=== PATIENT | female | born 1980 | race Two or more races ===

== ENCOUNTER 2023-08-16 00:41 | Emergency (ER) | payer OTHER, MEDICAID ==
[~2023-08-16] VITALS: Ht 170.2 cm; Wt 136.0 kg
[2023-08-16 00:49] VITALS: BP 148/89; PULSE 83; RESP 16; TEMP 99
[2023-08-16 04:21] VITALS: O2SAT 96
[2023-08-16] MEDS: HYDROcodone-ACET 5/325MG TAB PO ONE (04:25)
[2023-08-16] MEDS ORDERED: HYDR-4902 PO (04:30)
== END 2023-08-16 04:49 | disposition home or self-care (01) ==
LOC: ER 00:41
DX: M25.571 Pain in right ankle and joints of right foot (principal); Z88.8 Allergy status to other drugs, medicaments and biological substances
CPT/HCPCS: 29515; 73610

== ENCOUNTER 2024-05-03 06:01 | Emergency (ER) | payer MEDICAID, OTHER ==
[~2024-05-03] VITALS: Ht 170.2 cm; Wt 131.2 kg
[~2024-05-03 06:01] MED LIST: AUG875T PO; HYDR-4902 PO; IBUP-1455 PO; MECL1TAB42 PO; ZOFR4T PO
--- NOTE | 2024-05-03 07:05 | ED.PDOC ---
History of Present Illness HPI Comments This is 44-year-old female who comes into the ED with chief complain of generalized tingling and dizziness. She has a past medical history relevant for type 2 diabetes , hypertension and brain aneurysm, vertigo. Patient stated that since yesterday she started having generalized tingling sensation, numbness and tightness sensation on her right upper arm, a mild headache, intermittent palpitations, and intermittent dizziness worse on change of position. She stated that she took her BP at home and it was 178/108. She mentioned that on med February she got a new prescription for amlodipine 5 mg p.o. q.d. and losartan 25 mg p.o. q.d.. Patient denies any shortness of breath, chest pain, lightheadedness, abdominal pain, nausea, vomiting, gait disturbance, significant weakness. Chief Complaint: Dizziness Time Seen by MD: 06:35 Primary Care Provider: ? Reviewed Notes: Nurses Notes Allergies: Coded Allergies: Codeine (Verified Allergy, Unknown, 08/16/23) Uncoded Allergies: IV CONTRAST (Allergy, Unknown, 08/16/23) Home Meds Active Scripts Ibuprofen Micronized (Ibuprofen) 800 Mg Tab, 800 MG PO Q8HP PRN, #15 TAB Prov:STACY BRAND PAC 03/18/24 Ondansetron Odt 4MG Tab (ZOFRAN PO) 4 Mg Tb, 4 MG PO Q6HP PRN, #15 TAB ODT TAB-DISSOLVE IN MOUTH, THEN SWALLOW Prov:STACY BRAND PAC 03/18/24 Meclizine HCl (Meclizine 25) 25 Mg Tab, 25 MG PO Q8HP PRN, #15 TAB Prov:STACY BRAND PAC 03/18/24 Amoxicillin & Pot Clavulanate (AUGMENTIN TABLET) 875 Mg Tb, 875 MG PO BID for 10 Days, #20 TAB Prov:STACY BRAND PAC 03/18/24 Hydrocodone-Acetaminophen (Hydrocodone Bitartrate/AC 5-325 mg) 1 Tab Tab, 1 TAB PO Q6HPRN PRN, #10 TAB as needed for pain Prov:PRAMOD LU AUTOMATION CONTROLS ENGINEER 08/16/23 Information Source: Patient Mode of Arrival: Ambulatory Timing: Hours Duration: Since onset Past Medical History PAST MEDICAL HISTORY: DM, HTN Surgical History: Denies all surgeries BROTHEL KEEPER History: No Pertinent BROTHEL KEEPER History Family History Family History: Reviewed,noncontributory to illness, No family hx of Cancer, No family hx of DM, No family hx of Heart kavya, No family hx of HTN, No family hx ofKidney kavya, No family hx of Liver kavya, No family hx of Lung kavya, No family hx of Stroke Social History Smoker: Non-Smoker Alcohol: Denies ETOH Use Drugs: Denies Drug Use Lives In: Home Constitutional: denies: chills, diaphoresis, fatigue, fever, malaise, sweats, weakness, others EENTM: denies: blurred vision, double vision, ear bleeding, ear discharge, ear drainage, ear pain, ear ringing, eye pain, eye redness, hearing loss, mouth pain, mouth swelling, nasal discharge, nose bleeding, nose congestion, nose pain, photophobia, tearing, throat pain, throat swelling, voice changes, others Respiratory: denies: cough, hemoptysis, orthopnea, SOB at rest, shortness of breath, SOB with excertion, stridor, wheezing, others Cardiovascular: denies: chest pain, dizzy spells, diaphoresis, Dyspnea on exertion, edema, irregular heart beat, left arm pain, lightheadedness, palpitations, PND, syncope, others Gastrointestinal: denies: abdomen distended, abdominal pain, blood streaked bowels, constipated, diarrhea, dysphagia, difficulty swallowing, hematemesis, melena, nausea, poor appetite, poor fluid intake, rectal bleeding, rectal pain, vomiting, others Genitourinary: denies: abnormal vagina bleeding, burning, dyspareunia, dysuria, flank pain, frequency, hematuria, incontinence, pain, , vagina discharge, urgency, others Neurological: reports: dizziness, headache, numbness, paresthesia, tingling; denies: fainting, left sided numbness, left sided weakness, pre-existing deficit, right sided numbness, right sided weakness, seizure, speech problems, tremors, weakness, others Musculoskeletal: denies: back pain, gout, joint pain, joint swelling, muscle pain, muscle stiffness, neck pain, others Integumetry: denies: bruises, change in color, change in hair/nails, dryness, laceration, lesions, lumps, rash, wounds, others Allergic/Immunocompromised: denies: Difficulty Healing, Frequent Infections, Hives, Itching, others Hematologic/Lymphatic: denies: anemia, blood clots, easy bleeding, easy bruising, swollen glands, others Endocrine: denies: excessive hunger, excessive sweating, excessive thirst, excessive urination, flushing, intolerance to cold, intolerance to heat, unexplained weight gain, unexplained weight loss, others Psychiatric: denies: anxiety, bipolar disorder, depression, hopeless, panic disorder, schizophrenia, sleepless, suicidal, others Physical Exam General Appearance: No Apparent Distress, Normal HEENT: Normal ENT Inspection, Pharynx Normal, TMs Normal Neck: Full Range of Motion, Non-Tender, Normal, Normal Inspection Respiratory: Chest Non-Tender, Lungs Clear, No Accessory Muscle Use, No Respiratory Distress, Normal Breath Sounds Cardiovascular: No Edema, No JVD, No Murmur, No Gallop, Normal Peripheral Pulses, Regular Rate/Rhythm Breast Exam: Deferred Gastrointestinal: No Organomegaly, Non Tender, No Pulsatile Mass, Normal Bowel Sounds, Soft Genitalia: Deferred Pelvic: Deferred Rectal: Deferred Extremities: No calf tenderness, Normal capillary refill, Normal inspection, Normal range of motion, Non-tender, No pedal edema Neurologic: Alert, 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 Was a procedure done?: No Differential Dx Considerations may include: Hypertensive urgency, anxiety disorder, vertigo, hyperglycemia, X-Ray, Labs, Meds, VS Vital Signs Date Time Temp Pulse Resp B/P (MAP) Pulse Ox O2 Delivery O2 Flow Rate FiO2 05/03/24 07:40 80 20 138/92 (107) 98 05/03/24 07:40 80 20 98 Room Air* 0 21 05/03/24 06:38 80 05/03/24 06:05 97.9 78 16 160/97 (118) 99 Lab Test 05/03/24 06:40 05/03/24 06:20 05/03/24 06:19 Range/Units White Blood Count 8.0 4.4-10.8 10^3/uL Red Blood Count 5.30 H 4.0-5.20 10^6/uL Hemoglobin 14.3 12.2-16.2 g/dL Hematocrit 42.8 36.0-46.0 % Mean Corpuscular Volume 80.7 80.0-100.0 fL Mean Corpuscular Hemoglobin 26.9 L 28.0-32.0 pg Mean Corpuscular Hemoglobin Concent 33.3 32.0-36.0 g/dL Red Cell Distribution Width 13.8 11.8-14.3 % Platelet Count 296 140-450 10^3/uL Mean Platelet Volume 8.1 6.9-10.8 fL Neutrophils (%) (Auto) 57.0 37.0-80.0 % Lymphocytes (%) (Auto) 34.8 10.0-50.0 % Monocytes (%) (Auto) 5.3 0.0-12.0 % Eosinophils (%) (Auto) 2.5 0.0-7.0 % Basophils (%) (Auto) 0.4 0.0-2.0 % Neutrophils # (Auto) 4.6 1.6-8.6 10 ^3/uL Lymphocytes # (Auto) 2.8 0.4-5.4 10 ^3/uL Monocytes # (Auto) 0.4 0-1.3 10 ^3/uL Eosinophils # (Auto) 0.2 0-0.8 10 ^3/uL Basophils # (Auto) 0 0-0.2 10 ^3/uL Nucleated Red Blood Cells 0.1 % Sodium Level 137 136-145 mmol/L Potassium Level 4.0 3.5-5.1 mmol/L Chloride Level 103 98-107 mmol/L Carbon Dioxide Level 28 20-31 mmol/L Anion Gap 6 5-15 Blood Urea Nitrogen 10 9-23 mg/dL Creatinine 0.61 0.550-1.02 mg/dL Glomerular Filtration Rate Calc 112 >90 mL/min BUN/Creatinine Ratio 16.4 10.0-20.0 Serum Glucose 162 H 74-106 mg/dL Calcium Level 9.4 8.7-10.4 mg/dL Troponin I High Sensitivity < 3 L </=34 ng/L Urine Color Colorless Yellow Urine Clarity Clear Clear Urine pH 5.5 5.0-9.0 Urine Specific Tower 1.013 1.001-1.035 Urine Protein Negative Negative Urine Ketones Negative Negative Urine Blood Negative Negative /uL Urine Nitrite Negative Negative Urine Bilirubin Negative Negative Urine Urobilinogen Normal Negative mg/dL Urine Leukocyte Esterase Negative Negative /uL Urine RBC 2 0 - 4 /hpf Urine WBC <1 0 - 5 /hpf Urine Squamous Epithelial Cells Few <5 /hpf Urine Bacteria None seen None Seen /hpf Urine Glucose Normal Normal mg/dL POC Glucose 156 H 70-106 mg/dl On my initial examination, patient is in no apparent distress, states feeling the numbness and tingling sensation mostly on her right arm. We will order CBC, BMP, UA, EKG, troponins we will continue to reassess. Blood work was unremarkable, EKG was unremarkable, patient has had significant clinical improvement , blood pressure came down to normal levels. We will discharge patient home on continue home medications prescribed, we will recommended to follow with PCP within one week, counseled her on low-salt diet, stress relieving activities, exercise. We will increase the dose of losartan to 50 mg p.o. q.d. and we will also prescribe her Zoloft 25 mg p.o. q.d., comprehensively counseled about benefits and possible side effects of these medications. Images Reviewed?: Images reviewed and evaluated by me Time of 1ST Reevaluation: 06:57 Reevaluation 1ST: Unchanged Time of 2ND Reevaluation: 08:00 Reevaluation 2ND: Improved Patient Education/Counseling: Diagnosis, Treatment Family Education/Counseling: No Family Present Departure 1 Departure Time of Disposition: 08:35 Impression: Primary Impression: Hypertensive urgency Additional Impressions: Anxiety disorder Type 2 diabetes mellitus Disposition: 01 HOME / SELF CARE / HOMELESS Condition: Stable e-Prescriptions Sertraline Hcl (Sertraline Hcl) 25 Mg Tab 1 TAB PO DAILY, #30 TAB 1 Refill Prov: SABA MORALES RESIDENT 05/03/24 Losartan Potassium (Losartan Potassium) 50 Mg Tab 1 TAB PO DAILY, #90 TAB 1 Refill Prov: SABA MORALES RESIDENT 05/03/24 Critical Care Note Critical Care Time?: No Stability Stability form required: No Heart Score Heart Score: Heart Score Response (Comments) Value History Slightly Suspicious 0 EKG Normal 0 Age 45-64 1 Risk Factors 1 or 2 risk factors 1 Troponin N/A 0 Total 2 SABA MORALES RESIDENT May 03, 2024 07:04
[2024-05-03 07:13] LABS: Urine Bacteria None Seen /hpf (None Seen)
[2024-05-03 07:14] LABS: Basophils # (auto) 0 10 ^3/uL (0-0.2); Basophils % (auto) 0.4 % (0.0-2.0); Eosinophils # (auto) 0.2 10 ^3/uL (0-0.8); Hemoglobin 14.3 g/dL (12.2-16.2); Lymphocytes # (auto) 2.8 10 ^3/uL (0.4-5.4); Mean Corpuscular Hemoglobin 26.9 pg (28.0-32.0); Monocytes # (auto) 0.4 10 ^3/uL (0-1.3); Neutrophils # (auto) 4.6 10 ^3/uL (1.6-8.6); Nucleated Red Blood Cells % 0.1 %
[2024-05-03 07:17] LABS: Eosinophils % (auto) 2.5 % (0.0-7.0); Hematocrit 42.8 % (36.0-46.0); Lymphocytes % (auto) 34.8 % (10.0-50.0); Mean Corpuscular Hgb Conc. 33.3 g/dL (32.0-36.0); Mean Corpuscular Volume 80.7 fL (80.0-100.0); Monocytes % (auto) 5.3 % (0.0-12.0); Platelet Count (auto) 296 10^3/uL (140-450); Red Cell Distribution Width 13.8 % (11.8-14.3)
[2024-05-03 07:18] LABS: Chloride 103 mmol/L (98-107); Sodium 137 mmol/L (136-145)
[2024-05-03 07:19] LABS: Anion Gap 6 (5-15); Calcium 9.4 mg/dL (8.7-10.4); Carbon Dioxide 28 mmol/L (20-31)
[2024-05-03 07:24] LABS: BUN/Creatinine Ratio 16.4 (10.0-20.0); Blood Urea Nitrogen 10 mg/dL (9-23); Glucose 162 mg/dL (74-106)
[2024-05-03 07:30] LABS: Urine Blood Negative /uL (Negative); Urine Clarity Clear (Clear); Urine Color Colorless (Yellow); Urine Protein, UAD Negative (Negative); Urine Specific Gravity 1.013 (1.001-1.035); Urine Urobilinogen Normal (Negative); Urine WBC <1 /hpf (0 - 5); Urine pH 5.5 (5.0-9.0)
[2024-05-03 07:40] VITALS: PULSE 80; RESP 20; O2SAT 98
[2024-05-03] MEDS ORDERED: LOSA-534 PO (08:37)
[2024-05-03] MEDS ORDERED: SERT25TA28 PO (08:37)
[2024-05-03 08:59] VITALS: BP 128/66; PULSE 88; RESP 20; O2SAT 97
--- NOTE | 2024-05-04 07:19 | ECG ---
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
== END 2024-05-03 09:01 | disposition home or self-care (01) ==
LOC: ER 06:01
DX: I16.0 Hypertensive urgency (principal); I10 Essential (primary) hypertension; F41.9 Anxiety disorder, unspecified; E11.9 Type 2 diabetes mellitus without complications; R00.2 Palpitations; Z79.899 Other long term (current) drug therapy; Z88.5 Allergy status to narcotic agent
CPT/HCPCS: 36415; 80048; 81001; 82962; 84484; 85025; 93005

== ENCOUNTER 2025-03-11 21:46 | Emergency (ER) | payer MEDICAID ==
[~2025-03-11] VITALS: Ht 167.6 cm; Wt 131.2 kg
[2025-03-11] MEDS: cefTRIAXone SOD 1,000 MG VL IM ONE (03:40)
[~2025-03-11 21:46] MED LIST changes: +LOSA-534 PO; +SERT25TA28 PO
[2025-03-11] MEDS: LACTATED RINGER'S 1,800 ML IV ONE (22:17)
--- NOTE | 2025-03-11 22:38 | ED.PDOC ---
History of Present Illness HPI Comments 44 y/o F, with a history of brain aneurysm, DM II, and HTN, presents with c/c headache. Patient endorses on sudden, unprovoked, and atraumatic onset of pain, this evening, after having bodyaches, congestion, and throat itchiness all day since this morning. Denies any further associated symptoms. Headache is not stated to not be the worse she has had but it states on it being generalized throughout her head. Chief Complaint: Body Pain Time Seen by MD: 22:10 Primary Care Provider: ? Reviewed Notes: Nurses Notes, Medications, Allergies Allergies: Coded Allergies: Codeine (Verified Allergy, Unknown, 08/16/23) Uncoded Allergies: IV CONTRAST (Allergy, Unknown, 08/16/23) Home Meds Active Scripts Sertraline Hcl (Sertraline Hcl) 25 Mg Tab, 1 TAB PO DAILY, #30 TAB 1 Refill Prov:SABA MORALES RESIDENT 05/03/24 Losartan Potassium (Losartan Potassium) 50 Mg Tab, 1 TAB PO DAILY, #90 TAB 1 Refill Prov:SABA MORALES RESIDENT 05/03/24 Ibuprofen Micronized (Ibuprofen) 800 Mg Tab, 800 MG PO Q8HP PRN, #15 TAB Prov:STACY BRAND PAC 03/18/24 Ondansetron Odt 4MG Tab (ZOFRAN PO) 4 Mg Tb, 4 MG PO Q6HP PRN, #15 TAB ODT TAB-DISSOLVE IN MOUTH, THEN SWALLOW Prov:STACY BRAND PAC 03/18/24 Meclizine HCl (Meclizine 25) 25 Mg Tab, 25 MG PO Q8HP PRN, #15 TAB Prov:STACY BRAND PAC 03/18/24 Amoxicillin & Pot Clavulanate (AUGMENTIN TABLET) 875 Mg Tb, 875 MG PO BID for 10 Days, #20 TAB Prov:STACY BRAND PAC 03/18/24 Hydrocodone-Acetaminophen (Hydrocodone Bitartrate/AC 5-325 mg) 1 Tab Tab, 1 TAB PO Q6HPRN PRN, #10 TAB as needed for pain Prov:PRAMOD LU TREASURER [employer] 08/16/23 Information Source: Patient Mode of Arrival: Ambulatory Past Medical History PAST MEDICAL HISTORY: DM, HTN Surgical History: Denies all surgeries NET MANAGER History: No Pertinent NET MANAGER History Family History Family History: Reviewed,noncontributory to illness, No family hx of Cancer, No family hx of DM, No family hx of Heart kavya, No family hx of HTN, No family hx ofKidney kavya, No family hx of Liver kavya, No family hx of Lung kavya, No family hx of Stroke Social History Smoker: Non-Smoker Alcohol: Denies ETOH Use Drugs: Denies Drug Use Lives In: Home All Other Systems: Reviewed and Negative (as per HPI) Physical Exam General Appearance: No Apparent Distress, Obese HEENT: Normal ENT Inspection, Pharynx Normal, TMs Normal Neck: Full Range of Motion, Non-Tender, Normal, Normal Inspection Respiratory: Chest Non-Tender, Lungs Clear, No Accessory Muscle Use, No Respiratory Distress, Normal Breath Sounds Cardiovascular: No Edema, No JVD, No Murmur, No Gallop, Normal Peripheral Pulses, Regular Rate/Rhythm Breast Exam: Deferred Gastrointestinal: No Organomegaly, Non Tender, No Pulsatile Mass, Normal Bowel Sounds, Soft Genitalia: Deferred Pelvic: Deferred Rectal: Deferred Extremities: No calf tenderness, Normal capillary refill, Normal inspection, Normal range of motion, Non-tender, No pedal edema Musculoskeletal : Apperance: Normal Neurologic: Alert, 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 Was a procedure done?: No Differential Dx Considerations may include: brain aneurysm, migraines, tension headache, viral syndrome, meningitis, intracranial bleed among others X-Ray, Labs, Meds, VS Vital Signs Date Time Temp Pulse Resp B/P (MAP) Pulse Ox O2 Delivery O2 Flow Rate FiO2 03/11/25 21:47 100.1 119 19 149/85 96 100.1 Lab Test 03/11/25 22:40 Range/Units White Blood Count 5.5 4.4-10.8 10^3/uL Red Blood Count 5.46 H 4.0-5.20 10^6/uL Hemoglobin 14.6 12.2-16.2 g/dL Hematocrit 43.1 36.0-46.0 % Mean Corpuscular Volume 79.0 L 80.0-100.0 fL Mean Corpuscular Hemoglobin 26.8 L 28.0-32.0 pg Mean Corpuscular Hemoglobin Concent 34.0 32.0-36.0 g/dL Red Cell Distribution Width 14.0 11.8-14.3 % Platelet Count 192 140-450 10^3/uL Mean Platelet Volume 8.6 6.9-10.8 fL Neutrophils (%) (Auto) 68.6 37.0-80.0 % Lymphocytes (%) (Auto) 16.5 10.0-50.0 % Monocytes (%) (Auto) 12.6 H 0.0-12.0 % Eosinophils (%) (Auto) 1.9 0.0-7.0 % Basophils (%) (Auto) 0.4 0.0-2.0 % Neutrophils # (Auto) 3.8 1.6-8.6 10 ^3/uL Lymphocytes # (Auto) 0.9 0.4-5.4 10 ^3/uL Monocytes # (Auto) 0.7 0-1.3 10 ^3/uL Eosinophils # (Auto) 0.1 0-0.8 10 ^3/uL Basophils # (Auto) 0 0-0.2 10 ^3/uL Nucleated Red Blood Cells 0.1 % Prothrombin Time 10.6 9.3-11.8 sec Prothrombin Time INR 1.00 0.9-1.15 Activated Partial Thromboplast Time 28.7 24.5-34.5 SEC Sodium Level 132 L 136-145 mmol/L Potassium Level 4.0 3.5-5.1 mmol/L Chloride Level 97 L 98-107 mmol/L Carbon Dioxide Level 24 20-31 mmol/L Anion Gap 11 5-15 Blood Urea Nitrogen 11 9-23 mg/dL Creatinine 0.74 0.550-1.02 mg/dL Glomerular Filtration Rate Calc 101 >90 mL/min BUN/Creatinine Ratio 14.9 10.0-20.0 Serum Glucose 325 H 74-106 mg/dL Lactic Acid Level 1.5 0.4-2.0 mmol/L Calcium Level 8.9 8.7-10.4 mg/dL Total Bilirubin 0.3 0.2-1.0 mg/dL Aspartate Amino Transferase (AST) 30 13-40 U/L Alanine Aminotransferase (ALT) 37 7-40 U/L Alkaline Phosphatase 149 H 46-116 U/L Total Protein 7.5 5.7-8.2 g/dL Albumin 4.1 3.2-4.8 g/dL [address] [address] Ph: [phone] DIAGNOSTIC IMAGING Diagnostic Imaging Report : [id number] Signed PATIENT: TEN LOCKWOOD ACCT: [id number] UNIT: [id number] : 1980 LOC: ER ROOM / BED: / AGE / SEX: 44 / F ADM STATUS: REG ER SERVICE 13 ORDERING PHYSICIAN: EMMA CID MD PROCEDURE(s): CXRP - CHEST PORTABLE REASON: sepsis ORDER NUMBER(s): [id number], ACCESSION NUMBER(s): [id number] INDICATION: sepsis TECHNIQUE: Frontal view of the chest. COMPARISON: None FINDINGS/IMPRESSION: The lungs are clear. The cardiomediastinal silhouette is unremarkable. No pleural effusion or pneumothorax. No acute osseous abnormality. ATED BY: MIKE KEARNEY MD DICTATED DATE/TIME: 03/11/252334 SIGNED BY: MIKE KEARNEY MD SIGNED DATE/TIME: 03/11/252334 CC: [address] [address] Ph: [phone] DIAGNOSTIC IMAGING Diagnostic Imaging Report : [id number] Signed PATIENT: TEN LOCKWOOD ACCT: [id number] UNIT: [id number] : 1980 LOC: ER ROOM / BED: / AGE / SEX: 44 / F ADM STATUS: REG ER SERVICE 11 ORDERING PHYSICIAN: EMMA CID MD PROCEDURE(s): HWOCT - HEAD WITHOUT CONTRAST REASON: headache, history of aneurism ORDER NUMBER(s): [id number], ACCESSION NUMBER(s): [id number] EXAM: CT HEAD WITHOUT CONTRAST INDICATION: headache, history of aneurism TECHNIQUE: CT of the head without intravenous contrast. Radiation Dose : 1. Head: CT Dose: CTDI volume is 66.16 mGy. Dose-length product is 1303.58 mGy*cm The dose indicators for CT are the volume Computed Tomography (CT) Dose Index (CTDIvol) and the Dose Length Product (DLP), and are measured in units of mGy and mGy-cm, respectively. These indicators are not patient dose, but values generated from the CT scanner acquisition factors. The report includes radiation exposure data for exposures received during this examination. COMPARISON: CT HEAD WITHOUT CONTRAST on DOS: 03/18/24 FINDINGS: Brain: No acute hemorrhage, mass effect, or cerebral edema. Small focus of encephalomalacia within the left inferior frontal gyrus. Aneurysm clip of the left MCA. CSF Spaces: Size and morphology within normal limits. Bones/Soft Tissues: No acute findings. Orbits/Sinuses/Mastoids: Mild paranasal sinus disease. Otherwise unremarkable. IMPRESSION: 1. No acute intracranial abnormality. 2. 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 Radiation optimization: All CT scans at this facility use at least one of these dose optimization techniques: automated exposure control mA and/or kV adjustment per patient size (includes targeted exams where dose is matched to clinical indication) or iterative reconstruction. ATED BY: ANTHONY CARRERA MD DICTATED DATE/TIME: 03/11/252328 SIGNED BY: ANTHONY CARRERA MD SIGNED DATE/TIME: 03/11/252328 CC: Time of 1ST Reevaluation: 22:40 Reevaluation 1ST: Unchanged Reevaluation 2ND: Patient eloped Patient Education/Counseling: Diagnosis, Treatment, Need For Follow Up Family Education/Counseling: No Family Present Comments Because the patient has history of brain aneurysm the concern was intracranial bleed CVA. Also patient has a low-grade temperature meningitis is a concern although she does not present with nuchal rigidity any rashes or photophobia. Viral headache and viral syndrome can also produce the same presentation. Her CT was unremarkable however on re-evaluation the patient had eloped Additional Information Previous visits: May 03, 2024 encounter for hypertensive urgency The following tests were ordered, and results were reviewed by me: Accucheck, head CT w/o contrast, Covid19/influenza antigen, urine test, lactic acid, UA, PTPTT, CMP, CBC, blood culture, CXR Additional Information was gathered from interviewing the following independent historians: N/A I reviewed and agreed with the following test results read by other providers: head CT w/o contrast, CXR I discussed treatment and results with medical personnel and: patient SEPSIS Sepsis Screen Date sepsis recognized/suspect: Mar 11, 2025 Time Sepsis recognized/suspect: 2152 Recent Procedure: No On Antibiotic Therapy: No Respiratory Rate >20: No Heart Rate >90: Yes Temp<36 C (96.8 F) or >38.3 C: No SBP <90 or MAP <65 mmHG: No New Acute Mental Status Change: No Is the patient on CPAP, BIPAP,: No Physician Orders Head Without Contrast (03/11/25 22:12) Urinalysis (03/11/25 22:14) Chest Portable (03/11/25 22:14) Accucheck (03/11/25 22:14) Blood Culture (03/11/25 22:14) Notify Md If Map <65 Or Bp<90 (03/11/25 22:14) If Map<65 Start Vasopressor (03/11/25 22:14) Sepsis Reassesment After Fluid (03/11/25 23:14) Test, Urine (03/11/25 22:14) Covid19 Antigen Liss (03/11/25 ) Vital Signs Date Time Temp Pulse Resp B/P (MAP) Pulse Ox O2 Delivery O2 Flow Rate FiO2 03/11/25 21:47 100.1 119 19 149/85 96 100.1 Laboratory Tests Test 03/11/25 22:40 Lactic Acid Level 1.5 mmol/L (0.4-2.0) White Blood Count 5.5 10^3/uL (4.4-10.8) Departure 1 Departure Time of Disposition: 02:02 Impression: Primary Impression: Headache Disposition: 07 LEFT AWOL/ELOPED Condition: Other (Unknown) Critical Care Note Critical Care Time?: No Stability Stability form required: No Heart Score Heart Score: Heart Score Response (Comments) Value History N/A 0 EKG N/A 0 Age N/A 0 Risk Factors N/A 0 Troponin N/A 0 Total 0 I personally scribed for EMMA CID MD ([email or web address]) on 03/11/25 at 22:38. Electronically submitted by Silvano Ferrari ([email or web address]). I personally scribed for EMMA CID MD ([email or web address]) on 03/12/25 at 00:35. Electronically submitted by Silvano Ferrari ([email or web address]). EMMA CID MD Mar 11, 2025 22:38
[2025-03-11 22:59] LABS: Hematocrit 43.1 % (36.0-46.0); Hemoglobin 14.6 g/dL (12.2-16.2); Mean Corpuscular Hemoglobin 26.8 pg (28.0-32.0); Mean Corpuscular Volume 79.0 fL (80.0-100.0); Nucleated Red Blood Cells % 0.1 %
[2025-03-11 23:13] LABS: INR 1.0 (0.9-1.15); Partial Thromboplastin Time 28.7 SEC (24.5-34.5); Prothrombin Time 10.6 sec (9.3-11.8)
[2025-03-11 23:17] LABS: Alanine Aminotransferase 37 U/L (7-40); Anion Gap 11 (5-15); BUN/Creatinine Ratio 14.9 (10.0-20.0); Blood Urea Nitrogen 11 mg/dL (9-23); Calcium 8.9 mg/dL (8.7-10.4); Carbon Dioxide 24 mmol/L (20-31); Potassium 4.0 mmol/L (3.5-5.1); Total Protein 7.5 g/dL (5.7-8.2)
[2025-03-11 23:18] LABS: Albumin 4.1 g/dL (3.2-4.8); Alkaline Phosphatase 149 U/L (46-116); Bilirubin, Total 0.3 mg/dL (0.2-1.0); Chloride 97 mmol/L (98-107); Glucose 325 mg/dL (74-106); Sodium 132 mmol/L (136-145)
--- NOTE | 2025-03-11 23:32 | DVH ---
EXAM: CT HEAD WITHOUT CONTRAST INDICATION: headache, history of aneurism TECHNIQUE: CT of the head without intravenous contrast. Radiation Dose : 1. Head: CT Dose: CTDI volume is 66.16 mGy. Dose-length product is 1303.58 mGy*cm The dose indicators for CT are the volume Computed Tomography (CT) Dose Index (CTDIvol) and the Dose Length Product (DLP), and are measured in units of mGy and mGy-cm, respectively. These indicators are not patient dose, but values generated from the CT scanner acquisition factors. The report includes radiation exposure data for exposures received during this examination. COMPARISON: CT HEAD WITHOUT CONTRAST on DOS: 03/18/24 FINDINGS: Brain: No acute hemorrhage, mass effect, or cerebral edema. Small focus of encephalomalacia within th e left inferior frontal gyrus. Aneurysm clip of the left MCA. CSF Spaces: Size and morphology within normal limits. Bones/Soft Tissues: No acute findings. Orbits/Sinuses/Mastoids: Mild paranasal sinus disease. Otherwise unremarkable. IMPRESSION: 1. No acute intracranial abnormality. 2. 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 Radiation optimization: All CT scans at this facility use at least one of these dose optimization johanne hniques: automated exposure control mA and/or kV adjustment per patient size (includes targeted exam s where dose is matched to clinical indication) or iterative reconstruction.
--- NOTE | 2025-03-11 23:38 | DVH ---
INDICATION: sepsis TECHNIQUE: Frontal view of the chest. COMPARISON: None FINDINGS/IMPRESSION: The lungs are clear. The cardiomediastinal silhouette is unremarkable. No pleural effusion or pneumo thorax. No acute osseous abnormality.
[2025-03-12 02:50] VITALS: PULSE 100; RESP 18; TEMP 99.3; O2SAT 97
[2025-03-12 03:23] VITALS: BP 148/96
[2025-03-12] MEDS: fentaNYL CITRATE 100 MCG/2 ML VL IM ONE (03:23)
[2025-03-12 05:25] LABS: COVID19 ANTIGEN SOFIA FIA NEGATIVE (NEGATIVE)
[2025-03-12 07:55] LABS: Urine Protein, UAD Negative (Negative)
== END 2025-03-12 04:36 | disposition left against medical advice (07) ==
LOC: ER 21:48
DX: R51.9 Headache, unspecified (principal); E11.9 Type 2 diabetes mellitus without complications; Z79.899 Other long term (current) drug therapy; Z88.5 Allergy status to narcotic agent; Z86.2 Personal history of diseases of the blood and blood-forming organs and certain disorders involving the immune mechanism; Z20.822 Contact with and (suspected) exposure to COVID-19
CPT/HCPCS: 36415; 70450; 71045; 80053; 81001; 81025; 83605; 85025; 85610; 85730; 87040; 87426; 96360; 96361; 96372; 99285; J0696; J3010

== ENCOUNTER → 2025-04-17 | Outpatient (CLI) | payer MEDICAID ==
[2025-04-17 11:54] LABS: Hemoglobin 14.6 g/dL (12.2-16.2); Nucleated Red Blood Cells % 0.1 %
[2025-04-17 11:56] LABS: Hematocrit 43.9 % (36.0-46.0); Mean Corpuscular Hemoglobin 26.4 pg (28.0-32.0); Mean Corpuscular Volume 79.5 fL (80.0-100.0)
[2025-04-17 12:24] LABS: Iron 90.0 ug/dL (50-170)
[2025-04-17 12:27] LABS: Alanine Aminotransferase 35 U/L (7-40); Albumin 4.2 g/dL (3.2-4.8); Alkaline Phosphatase 145 U/L (46-116); Anion Gap 9 (5-15); BUN/Creatinine Ratio 13.5 (10.0-20.0); Blood Urea Nitrogen 10 mg/dL (9-23); Calcium 8.7 mg/dL (8.7-10.4); Carbon Dioxide 26 mmol/L (20-31); Chloride 101 mmol/L (98-107); Glucose 310 mg/dL (74-106); Potassium 4.0 mmol/L (3.5-5.1); Sodium 136 mmol/L (136-145); Total Iron Binding Capacity 327.0 ug/dL (250-425); Total Protein 7.8 g/dL (5.7-8.2); Triglycerides 138 mg/dL (< 150)
[2025-04-17 12:28] LABS: Cholesterol 187 mg/dL (< 200)
[2025-04-17 12:29] LABS: Bilirubin, Total 0.5 mg/dL (0.2-1.0); HDL Cholesterol 38 mg/dL (40-59)
[2025-04-17 13:43] LABS: Hepatitis A Total Antibody Positive (Negative); Hepatitis B Surface Antigen Negative (Negative); Hepatitis C Antibody Negative (Negative)
== END | disposition home or self-care (01) ==
LOC: LAB 11:33
PROVIDERS: ATTEND Licensed Practical Nurse
DX: E78.5 Hyperlipidemia, unspecified (principal); Z13.29 Encounter for screening for other suspected endocrine disorder; E55.9 Vitamin D deficiency, unspecified; E11.69 Type 2 diabetes mellitus with other specified complication; I10 Essential (primary) hypertension
CPT/HCPCS: 36415; 80053; 80061; 82043; 82274; 82306; 82728; 83036; 83540; 83550; 84443; 85025; 86704; 86706; 86708; 86803; 87340